=== PATIENT | male | born 1955 | race Asian ===

== ENCOUNTER 2022-11-12 20:44 | Emergency (ER) | payer OTHER ==
[~2022-11-12] VITALS: Ht 177.8 cm; Wt 104.8 kg
[2022-11-12 20:44] VITALS: BP 138/75; TEMP 98.8
[2022-11-12 21:11] LABS: PLATELET COUNT 190 K/uL (142-355)
[2022-11-12 21:26] LABS: POTASSIUM 4.4 mmol/L (3.6-5.2)
[2022-11-13] MEDS ORDERED: AMIODARONE HYD200 MG PO (09:15)
[2022-11-13] MEDS ORDERED: BAYER CHEWABLE81 MG PO (09:16)
[2022-11-13] MEDS ORDERED: DIGO0.1230 PO (09:17)
[2022-11-13] MEDS ORDERED: FISH OIL1000 MG PO (09:18)
[2022-11-13] MEDS ORDERED: VIMPAT100 MG PO ×2 (09:19→09:20)
[2022-11-13] MEDS ORDERED: CVS SENNA8.6 MG PO (09:21)
[2022-11-13] MEDS ORDERED: ELIQUIS5 MG PO (09:22)
[2022-11-13] MEDS ORDERED: CORRECTOL100 MG PO (09:23)
[2022-11-13] MEDS ORDERED: DIVALPROEX125 MG PO (09:27)
[2022-11-13] MEDS ORDERED: DILT30TA24 PO (09:28)
[2022-11-13] MEDS ORDERED: FURO40TA93 PO (09:29)
[2022-11-13] MEDS ORDERED: METO25TA4 PO (09:30)
[2022-11-13] MEDS ORDERED: POTASSIUM CHLO20 ME1 PO (09:32)
[2022-11-13] MEDS ORDERED: PHEN50CH2 PO (09:33)
[2022-11-13] MEDS ORDERED: PHENOBARB PO (09:36)
[2022-11-13] MEDS ORDERED: CODEINE/APAP1 TA1 PO (09:40)
[2022-11-13] MEDS ORDERED: BISA10SU8 RE (09:41)
[2022-11-13] MEDS ORDERED: DICLOFENAC SODIUM1 % TD (09:42)
[2022-11-26] MEDS ORDERED: PACERONE200 MG PO (11:22)
[2022-11-26] MEDS ORDERED: ASPI81TA4 PO (11:23)
[2022-11-26] MEDS ORDERED: CHOL100034 PO (11:23)
[2022-11-26] MEDS ORDERED: DULCOLAX 10MG SUPP PR (11:23)
[2022-11-26] MEDS ORDERED: APIX1TAB PO (11:23)
[2022-11-26] MEDS ORDERED: Voltaren GEL 1% 100G TD (11:23)
[2022-11-26] MEDS ORDERED: DIGO0.1230 PO (11:23)
[2022-11-26] MEDS ORDERED: FOLI1TAB26 PO (11:24)
[2022-11-26] MEDS ORDERED: DILT30TA24 PO (11:24)
[2022-11-26] MEDS ORDERED: DIVALPROEX250 MG PO (11:24)
[2022-11-26] MEDS ORDERED: DOCU100C10 PO (11:24)
[2022-11-26] MEDS ORDERED: METO-837 PO (11:25)
[2022-11-26] MEDS ORDERED: FURO40TA93 PO (11:25)
[2022-11-26] MEDS ORDERED: VIMPAT100 MG PO ×2 (11:25)
[2022-11-26] MEDS ORDERED: POTA20TA4 PO (11:26)
[2022-11-26] MEDS ORDERED: PHEN30TA PO (11:26)
[2022-11-26] MEDS ORDERED: PHEN50CH2 PO (11:26)
== END 2022-11-12 22:10 | disposition other institution (70) ==
LOC: ED 20:44
PROVIDERS: Family Medicine
DX: F29 Unspecified psychosis not due to a substance or known physiological condition (principal); R45.6 Violent behavior; Z02.79 Encounter for issue of other medical certificate
CPT/HCPCS: 36415; 80053; 81002; 85027; 87635; 93005; 96361; 96374; 99283; 99284; U0003